=== PATIENT | female | born 1995 | race Caucasian/White ===

== ENCOUNTER 2016-06-16 16:42 | Emergency (ER) | payer OTHER ==
[2016-06-16 16:53] VITALS: BP 130/77
--- NOTE | 2016-06-16 16:55 | UC ---
- HPI Summary HPI Summary: here for a test so she can have x-rays done - History of Current Complaint Chief Complaint: UCGeneralIllness Stated Complaint: PREG TEST Time Seen by Provider: 06/16/16 16:54 Hx Obtained From: Patient Chief Complaint: Other: - needs preg test so she can get x-ray LMP 3 weeks ago Current Severity: None Location of Pain: None Character: None - Assessment Hx Now: No Hx Hysterectomy: No - Allergies/Home Medications Allergies/Adverse Reactions: Allergies Allergy/AdvReac Type Severity Reaction Status Date / Time Amoxicillin [From Augmentin] Allergy GI Upset Verified 06/16/16 16:53 Cefaclor [From Ceclor] Allergy Hives Verified 06/16/16 16:53 Clavulanic Acid Allergy GI Upset Verified 06/16/16 16:53 [From Augmentin] PMH/Surg Hx/FS Hx/Imm Hx Previously Healthy: Yes Endocrine/Hematology History: Denies: Hx Diabetes, Hx Thyroid Disease Cardiovascular History: Denies: Hx Hypertension, Hx Pacemaker/ICD Respiratory History: Reports: Hx Asthma Denies: Hx Chronic Obstructive Pulmonary Disease (COPD) GI History: Denies: Hx Ulcer Sensory History: Denies: Hx Hearing Aid Psychiatric History: Denies: Hx Panic Disorder - Cancer History Hx Hematologic Symptoms: No Hx Chemotherapy: No Hx Radiation Therapy: No Hx Palliative Cancer Treatment: No - Surgical History Surgery Procedure, Year, and Place: T&A, Lazy Eye correction Hx Anesthesia Reactions: No - Immunization History Hx Pertussis Vaccination: No Immunizations Up to Date: No Infectious Disease History: No Infectious Disease History: Denies: Hx Clostridium Difficile, Hx Hepatitis, Hx Human Immunodeficiency Virus (HIV), Hx of Known/Suspected MRSA, Hx Shingles, Hx Tuberculosis, Hx Known/ Suspected VRE, Hx Known/Suspected VRSA, History Other Infectious Disease, Traveled Outside the [place] in Last 30 Days - Family History Family History: denies medical problems in family lineage - Social History Occupation: Student Lives: With Family Alcohol Use: None Substance Use Type: Reports: None Smoking Status (MU): Never Smoked Tobacco Have You Smoked in the Last Year: No Review of Systems Constitutional: Negative Skin: Negative Eyes: Negative, Diplopia Respiratory: Negative Cardiovascular: Negative Gastrointestinal: Negative Genitourinary: Negative Motor: Negative Neurovascular: Negative Musculoskeletal: Negative Neurological: Negative Psychological: Negative All Other Systems Reviewed And Are Negative: Yes - Comments Additional Review of Systems Comments: LMP 3 weeks ago--no reason to believe she is --is here do to requirement for an x-ray Physical Exam - Physical Exam Triage Information Reviewed: Yes Vital Signs Reviewed: Yes Appearance: Positive: Well-Appearing, No Pain Distress, Well-Nourished Skin: Positive: Warm, Skin Color Reflects Adequate Perfusion Head/Face: Positive: Normal Head/Face Inspection Eyes: Positive: Normal, EOMI, PALMA, Conjunctiva Clear ENT: Positive: Normal ENT inspection, Hearing grossly normal. Negative: Nasal congestion, Nasal drainage, Trismus, Muffled/hoarse voice Neck: Positive: Supple Respiratory/Lung Sounds: Positive: Breath Sounds Present Cardiovascular: Positive: Normal, RRR Musculoskeletal: Positive: Normal, Strength/ROM Intact Neurological: Positive: Normal, Sensory/Motor Intact Psychiatric: Positive: Normal, Affect/Mood Appropriate AVPU Assessment: Alert - Anaya Coma Scale Eye: 4 - Spontaneous Motor: 6 - Obeys Commands Verbal: 5 - Oriented Coma Scale Total: 15 Course/Dx - Course Assessment/Plan: patient is not cleared for x-ray - Diagnoses Provider Diagnoses: Healthy female - Provider Notifications Discussed Care Of Patient With: continue usual life routine Admit/Transition Orders Completed By ED Provider: No Discharge - Discharge Plan Condition: Stable Disposition: HOME Forms: *Gen. Provider Communication Referrals: Skylar Zavala PA [Primary Care Provider] - If Needed
== END 2016-06-16 17:05 | disposition home or self-care (01) ==
LOC: UCEAST 16:42
DX: Z32.02 Encounter for pregnancy test, result negative (principal); Z88.1 Allergy status to other antibiotic agents; Z88.0 Allergy status to penicillin
CPT/HCPCS: 81025; 99211; G0463

== ENCOUNTER 2018-01-19 10:47 | Emergency (ER) | payer OTHER ==
[2018-01-19 11:14] VITALS: BP 125/76
--- NOTE | 2018-01-19 11:52 | UC ---
Palpitation/Dysrhythmia HP - HPI Summary HPI Summary: PALPITATION X 1 WEEK INTERMITTENT LASTING FOR FEW HRS , NOT SURE WHAT TRIGGERS IT AND NOTHING MAKES IT BETTER NO HX OF ANXIETY LIGHTHEADED, SOB, RACING HEART RAT, NO CHEST PAIN NO N/V/D/C - History of Current Complaint Chief Complaint: UCGeneralIllness Stated Complaint: SOB/ELEVATED HR Time Seen by Provider: 01/19/18 10:56 Hx Obtained From: Patient, Family/[employer]ist Hx Last Menstrual Period: ONE MONTH AGO ?: No Onset/Duration: Gradual Onset, Lasting Weeks - ONE WEEK Timing: Intermittent Episodes Lasting: - FEW HRS Severity Initially: Moderate Severity Currently: Moderate Pain Intensity: 5 Character: Fast Aggravating Factor(s): Nothing Alleviating Factor(s): Nothing Associated Signs & Symptoms: Positive: Lightheadedness, Dizzy, Shortness of Breath. Negative: Syncope, Chest Pain, Diaphoresis, Nausea, Vomiting - Allergy/Home Medications Allergies/Adverse Reactions: Allergies Allergy/AdvReac Type Severity Reaction Status Date / Time amoxicillin [From Augmentin] Allergy GI Upset Verified 01/19/18 11:15 cefaclor Allergy Hives Verified 01/19/18 11:15 clavulanic acid Allergy GI Upset Verified 01/19/18 11:15 [From Augmentin] Home Medications: Home Medications Albuterol HFA INHALER* [Ventolin HFA Inhaler*] 2 puff INH Q4H PRN 01/19/18 [ History Confirmed 01/19/18] PMH/Surg Hx/FS Hx/Imm Hx Cardiovascular History: Cardiac Disease - VSD Respiratory History: Asthma - Surgical History Surgical History: Yes Surgery Procedure, Year, and Place: T&A, Lazy Eye correction - Family History Known Family History: Negative: Blood Disorder Family History: denies medical problems in family lineage - Social History Alcohol Use: None Substance Use Type: None Smoking Status (MU): Never Smoked Tobacco Have You Smoked in the Last Year: No Review of Systems Constitutional: Negative Skin: Rash Eyes: Negative ENT: Negative Respiratory: Shortness Of Breath Cardiovascular: Palpitations Gastrointestinal: Negative Is Patient Immunocompromised?: No All Other Systems Reviewed And Are Negative: Yes Physical Exam Triage Information Reviewed: Yes Appearance: No Pain Distress, Obese Vital Signs: Initial Vital Signs Temp 97.3 F 01/19/18 11:10 Pulse 69 01/19/18 11:10 Resp 18 01/19/18 11:10 BP 125/76 01/19/18 11:10 Pulse Ox 100 01/19/18 11:10 Vital Signs Reviewed: Yes Eyes: Positive: Conjunctiva Clear ENT: Positive: Normal ENT inspection, Hearing grossly normal, Pharynx normal Neck: Positive: Supple, Nontender, No Lymphadenopathy Respiratory: Positive: Chest non-tender, Lungs clear, Normal breath sounds Cardiovascular: Positive: RRR, No Murmur, Pulses Normal Abdomen Description: Positive: Soft Skin: Positive: rashes Diagnostics - EKG Cardiac Rate: NL Cardiac Rhythm: Sinus: Normal Ectopy: None ST Segment: Normal EKG Comparison: No Significant Change Palpitations Course/Dx - Differential Dx/Diagnosis Provider Diagnoses: PALPITATION Discharge - Sign-Out/Discharge Documenting (check all that apply): Patient Departure All imaging exams completed and their final reports reviewed: No Studies - Discharge Plan Condition: Stable Disposition: HOME Patient Education Materials: Heart Palpitations (ED) Referrals: Skylar Zavala PA [Primary Care Provider] - 7 Days Additional Instructions: WILL CHECK CBC, CMP , TSH PALPITATION MAYBE DUE TO ANXIETY / PANIC DISORDER PLEASE FOLLOW UP WITH YOUR PCP IN ON WEEK - Billing Disposition and Condition Condition: STABLE Disposition: Home
[2018-01-19 18:56] LABS: Hematocrit 39 % (35-47); Mean Corpuscular HGB Conc 33 g/dl (31-36); Mean Corpuscular Hemoglobin 26 pg (27-31); Mean Corpuscular Volume 79 fL (80-97); Red Blood Count 4.96 10^6/ul (4.00-5.40); Red Cell Distribution Width 15 % (10.5-15); White Blood Count 9.5 10^3/ul (3.5-10.8)
[2018-01-19 19:06] LABS: EGFR Non-African American 102.9 (>60)
[2018-01-19 20:21] LABS: ABS Basophils 0 10^3/ul (0-0.2); ABS Eosinophils 0.2 10^3/ul (0-0.6); ABS Lymphocytes 2.6 10^3/ul (1.0-4.8); ABS Monocytes 0.4 10^3/ul (0-0.8); ABS Neutrophils 6.4 10^3/ul (1.5-7.7); ABS Nucleated RBC 0 10^3/ul; Eosinophil % 1.6 % (0-6); Lymphocyte % 27.1 % (25-47); Mean Platelet Volume 8.7 um3 (7.4-10.4); Nucleated Red Blood Cells % 0.2; Platelet Count 172 10^3/ul (150-450)
--- NOTE | 2018-01-20 11:59 | UC ---
- Progress Note Progress Note: CMC. cmp, tsh reviewed no management change ljj Discharge - Sign-Out/Discharge Documenting (check all that apply): Post-Discharge Follow Up All imaging exams completed and their final reports reviewed: No Studies - Discharge Plan Condition: Stable Disposition: HOME Patient Education Materials: Heart Palpitations (ED) Referrals: Skylar Zavala PA [Primary Care Provider] - 7 Days Additional Instructions: WILL CHECK CBC, CMP , TSH PALPITATION MAYBE DUE TO ANXIETY / PANIC DISORDER PLEASE FOLLOW UP WITH YOUR PCP IN ON WEEK - Billing Disposition and Condition Condition: STABLE Disposition: Home
== END 2018-01-19 12:02 | disposition home or self-care (01) ==
LOC: UCCORT 10:47
DX: R00.2 Palpitations (principal); Z88.3 Allergy status to other anti-infective agents
CPT/HCPCS: 36415; 80053; 84443; 84702; 85025; 93005; 99211; G0463

== ENCOUNTER 2019-07-19 09:38 | Emergency (ER) | payer OTHER ==
--- NOTE | 2019-07-19 10:00 | UC ---
General HPI - HPI Summary HPI Summary: 24-year-old female who has been feeling lightheaded and dizzy over the past week. She states there are times that she feels cold and then she feels like she might pass out however she has not passed out. She denies any diaphoresis. She is one week late for her period, however she states her periods are irregular because of PCOS. She states occasionally she'll have some nausea. She denies any other symptoms of illness. - History of Current Complaint Chief Complaint: UCGeneralIllness Stated Complaint: DIZZY/FATIGUE Time Seen by Provider: 07/19/19 09:54 Hx Obtained From: Patient Hx Last Menstrual Period: Jun 10 Onset/Duration: Gradual Onset, Lasting Days Timing: Intermittent Episodes Lasting: Onset Severity: Mild Current Severity: Mild Pain Intensity: 0 Associated Signs & Symptoms: Positive: Dizziness - Patient declines dizziness more as a feeling like she feels weak, cold and might pass out., Nausea - Intermittent nausea - Allergy/Home Medications Allergies/Adverse Reactions: Allergies Allergy/AdvReac Type Severity Reaction Status Date / Time amoxicillin [From Augmentin] Allergy GI Upset Verified 07/19/19 09:54 cefaclor Allergy Hives Verified 07/19/19 09:54 clavulanic acid Allergy GI Upset Verified 07/19/19 09:54 [From Augmentin] PMH/Surg Hx/FS Hx/Imm Hx Previously Healthy: Yes Cardiovascular History: Other - "leaky heart valves", VSD Respiratory History: Asthma - Surgical History Surgical History: Yes Surgery Procedure, Year, and Place: T&A, Lazy Eye correction - Family History Known Family History: Negative: Blood Disorder Family History: denies medical problems in family lineage - Social History Occupation: Unemployed Alcohol Use: None Substance Use Type: None Smoking Status (MU): Never Smoked Tobacco Have You Smoked in the Last Year: No Review of Systems All Other Systems Reviewed And Are Negative: Yes Gastrointestinal: Positive: Nausea Neurological/Mental Status: Positive: Other - Occasional dizziness where she feels cold and then feels weak and lays down and feels like she is going to pass out however she has not passed out. Is Patient Immunocompromised?: No Physical Exam Triage Information Reviewed: Yes Appearance: Well-Appearing, No Pain Distress, Well-Nourished, Obese Vital Signs: Initial Vital Signs Temp 97.3 F 07/19/19 09:45 Pulse 80 07/19/19 09:45 Resp 18 07/19/19 09:45 BP 117/65 07/19/19 09:45 Pulse Ox 100 07/19/19 09:45 Vital Signs Reviewed: Yes Eyes: Positive: Conjunctiva Clear ENT: Positive: Pharynx normal, TMs normal, Uvula midline Neck: Positive: Supple, Nontender, No Lymphadenopathy Respiratory: Positive: Lungs clear, Normal breath sounds, No respiratory distress, No accessory muscle use Cardiovascular: Positive: RRR, No Murmur, Pulses Normal, Brisk Capillary Refill Abdomen Description: Positive: Nontender, No Organomegaly, Soft. Negative: CVA Tenderness (R), CVA Tenderness (L), Distended, Guarding, Hepatomegaly, McBurney' s Point Tenderness, Splenomegaly Bowel Sounds: Positive: Present Neurological Exam: Normal Psychological Exam: Normal Skin Exam: Normal Course/Dx - Course Course Of Treatment: Urine hCG: Positive Urinalysis: Negative The result was given to the patient. She is going to go through her primary care provider for a referral to an IMMIGRATION MANAGER physician. I advised her to eat small frequent meals, to get up slowly if she feels lightheaded, to increase fluids and to take multivitamins daily. I had originally been able to interview her with the mother out of the room and had asked her that if the test was positive should I give her that result in front of the mother or have the mother step out and she agreed that I could give the result her in front of the mother. - Diagnoses Provider Diagnosis: Positive test Discharge ED - Sign-Out/Discharge Documenting (check all that apply): Patient Departure All imaging exams completed and their final reports reviewed: No Studies - Discharge Plan Condition: Good Disposition: HOME Patient Education Materials: (ED) Referrals: Skylar Zavala PA [Primary Care Provider] - Additional Instructions: Increase fluids, follow-up with your primary care provider and she will give you assistance locating an IMMIGRATION MANAGER physician for further care. Take a daily multivitamin. If you feel dizzy or lightheaded get up slowly, eat small frequent meals. - Billing Disposition and Condition Condition: GOOD Disposition: Home
[2019-07-19 10:08] VITALS: BP 113/60
== END 2019-07-19 10:49 | disposition home or self-care (01) ==
LOC: UCCORT 09:38
DX: O99.89 Other specified diseases and conditions complicating pregnancy, childbirth and the puerperium (principal); O99.519 Diseases of the respiratory system complicating pregnancy, unspecified trimester; R11.0 Nausea; R42 Dizziness and giddiness; J45.909 Unspecified asthma, uncomplicated; Z88.0 Allergy status to penicillin; Z88.1 Allergy status to other antibiotic agents
CPT/HCPCS: 81003; 84702; 99211; G0463

== ENCOUNTER 2019-08-05 11:51 | Emergency (ER) | payer OTHER ==
[2019-08-05 14:08] VITALS: BP 119/71
--- NOTE | 2019-08-05 14:59 | UC ---
Throat Pain/Nasal Raul HPI - HPI Summary HPI Summary: 24-year-old female who is 8 weeks 6 days by last menstrual period presents with 3 day history of nasal congestion, postnasal drip, and sinus pressure. Reports mild sore throat at night due to the postnasal drip. Has not taken anything for her symptoms. History of asthma. Has not needed to use her albuterol inhaler. Denies fever, chills, ear pain, dysphagia, cough, chest pain, wheezing, or shortness of breath. - History of Current Complaint Chief Complaint: UCRespiratory Stated Complaint: SINUS CONGESTION Time Seen by Provider: 08/05/19 14:29 Hx Obtained From: Patient Hx Last Menstrual Period: ~06/05/2019 Pain Intensity: 3 - Allergies/Home Medications Allergies/Adverse Reactions: Allergies Allergy/AdvReac Type Severity Reaction Status Date / Time cefaclor Allergy Hives Verified 08/05/19 14:03 clavulanic acid Allergy GI Upset Verified 08/05/19 14:03 [From Augmentin] Home Medications: Home Medications Albuterol HFA INHALER* [Ventolin HFA Inhaler*] 1 - 2 puff INH Q4H PRN 01/19/18 [ History Confirmed 08/05/19] Albuterol 2.5MG/3ML (0.083%)* [Ventolin 2.5 MG/3 ML NEB.ALEYDA*] 2.5 mg INH Q6H PRN 08/05/19 [History Confirmed 08/05/19] Eucalyptus Oil/Menthol/Camphor [Vicks Vaporub] 1 applic TOPICAL SEE INSTRUCTIONS PRN 08/05/19 [History Confirmed 08/05/19] Fluticasone NASAL SPRAY 50MCG* [Flonase NASAL SPRAY 50MCG*] 2 spray BOTH NARES DAILY #1 btl 08/05/19 [Rx] PMH/Surg Hx/FS Hx/Imm Hx Respiratory History: Asthma - Surgical History Surgical History: Yes Surgery Procedure, Year, and Place: T&A, Lazy Eye correction - Family History Known Family History: Negative: Blood Disorder Family History: denies medical problems in family lineage - Social History Occupation: Unemployed Lives: With Family Alcohol Use: None Substance Use Type: None Smoking Status (MU): Never Smoked Tobacco Have You Smoked in the Last Year: No Review of Systems All Other Systems Reviewed And Are Negative: Yes Constitutional: Negative: Fever, Chills Eyes: Negative: Drainage, Eye Redness ENT: Positive: Sore Throat, Nasal Discharge, Sinus Congestion, Sinus Pain/ Tenderness. Negative: Ear Ache Respiratory: Negative: Shortness Of Breath, Cough Cardiovascular: Negative: Chest Pain Gastrointestinal: Positive: Negative Genitourinary: Positive: Negative Musculoskeletal: Positive: Negative Neurological/Mental Status: Positive: Negative Is Patient Immunocompromised?: No Physical Exam - Summary Physical Exam Summary: GENERAL APPEARANCE: Alert and cooperative obese female in no acute distress. EYES: Conjunctiva clear. No drainage. EARS: External auditory canals and tympanic membranes clear, hearing grossly intact. NOSE: Mild-moderate nasal congestion with clear nasal discharge. Maxillary sinus tenderness. THROAT: Pharynx normal. No tonsilar inflammation, swelling, exudate, or lesions. Uvula midline. NECK: Neck supple, non-tender without lymphadenopathy. CARDIAC: Normal S1 and S2. No S3, S4 or murmurs. Rhythm is regular. There is no peripheral edema, cyanosis or pallor. Extremities are warm and well perfused. Capillary refill is less than 2 seconds. Peripheral pulses intact. LUNGS: Clear to auscultation without rales, rhonchi, wheezing or diminished breath sounds. ABDOMEN: Positive bowel sounds. Soft, nondistended, nontender. No guarding or rebound. No masses or hepatosplenomegally. MUSKULOSKELETAL: ROM intact to all extremities. No joint erythema or tenderness. Normal muscular development. Normal gait. SKIN: Skin normal color, texture and turgor with no lesions or eruptions. Triage Information Reviewed: Yes Vital Signs: Initial Vital Signs Temp 98.1 F 08/05/19 13:58 Pulse 80 08/05/19 13:58 Resp 20 08/05/19 13:58 BP 119/71 08/05/19 13:58 Pulse Ox 100 08/05/19 13:58 Vital Signs Reviewed: Yes Throat Pain/Nasal Course/Dx - Course Course Of Treatment: 24-year-old female who is 8 weeks 6 days by last menstrual period presents with 3 day history of nasal congestion, postnasal drip, and sinus pressure. Reports mild sore throat at night due to the postnasal drip. Has not taken anything for her symptoms. History of asthma. Has not needed to use her albuterol inhaler. Denies fever, chills, ear pain, dysphagia, cough, chest pain, wheezing, or shortness of breath. Afebrile. Vital signs stable. Patient had a nasal congestion with clear nasal discharge, maxillary sinus tenderness, normal TMs, normal pharynx, no cervical lymphadenopathy, clear bilateral breath sounds, and otherwise unremarkable exam. Discussed with patient that based on the duration of her symptoms and being without fever she likely has an acute sinusitis of viral origin recommending symptomatic treatment at this time. She is to follow-up with her primary care provider in 5 -7 days if symptoms are not improving. Returns and warning symptoms reviewed with the patient. Verbalizes understanding and agrees with plan of care. - Differential Dx/Diagnosis Differential Diagnosis/HQI/PQRI: Influenza, Sinusitis, URI Provider Diagnosis: Acute sinusitis Discharge ED - Sign-Out/Discharge Documenting (check all that apply): Patient Departure All imaging exams completed and their final reports reviewed: No Studies - Discharge Plan Condition: Stable Disposition: HOME Prescriptions: Fluticasone NASAL SPRAY 50MCG* [Flonase NASAL SPRAY 50MCG*] 2 spray BOTH NARES DAILY #1 btl Patient Education Materials: Sinusitis (ED) Referrals: Skylar Zavala PA [Primary Care Provider] - Additional Instructions: Your history and exam are consistent with a sinus infection. Sinus infections without fever are most often caused by a viral infection. Viral infections do not respond to antibiotics and are limited to the treatment of symptoms. Viral infections typically run their course in 7-10 days. Drink plenty of fluids to avoid dehydration especially if you are running any fever. Use a saline rinse kit such as Neti Pot or NeilMed at least twice a day to help thin secretions and promote drainage of the sinuses. Use fluticasone (Flonase) nasal spray 2 sprays each nostril once daily. Take over the counter acetaminophen (Tylenol) or ibuprofen (Advil, Motrin) according to directions as needed for pain or fever. Follow up with your primary care provider in 5-7 days if symptoms persist. Seek immediate medical attention in the emergency room if you have fever greater than 100.5 F despite taking acetaminophen or ibuprofen, have chest pain , difficulty breathing, are unable to swallow, or have any worsening of symptoms. - Billing Disposition and Condition Condition: STABLE Disposition: Home - Attestation Statements Provider Attestation: This patient was not seen by me. I was available for consult. Chart reviewed. JLD Please note my shift ended at 14:30
== END 2019-08-05 15:12 | disposition home or self-care (01) ==
LOC: UCCORT 11:51
DX: O99.511 Diseases of the respiratory system complicating pregnancy, first trimester (principal); J01.90 Acute sinusitis, unspecified; J45.909 Unspecified asthma, uncomplicated; Z3A.08 8 weeks gestation of pregnancy; Z88.1 Allergy status to other antibiotic agents; Z88.0 Allergy status to penicillin
CPT/HCPCS: 99212; G0463